=== PATIENT | female | born 1945 | race Caucasian/White ===

== ENCOUNTER → 2017-05-28 | Outpatient (CLI) | payer MEDICARE, OTHER ==
[~2017-05-28] MED LIST: ACET500T68 PO; ASPI-1471 PO; CALC1TAB32 PO; CHOL400C PO; FLU60SYR30 IM ONLY; GLUC-198 PO; IBUP-1687 PO; LATA2.5D7 OU; OMEG-36 PO
--- NOTE | 2017-05-28 15:48 | RADIOLOGY IMAGING REPORT ---
FACILITY: [facility] PATIENT NAME: Ely Simeon : 1945 MR: [id number] V: [id number] EXAM DATE: ORDERING PHYSICIAN: HARRY DONOVAN TECHNOLOGIST: Location: [facility] Patient: Ely Simeon : 1945 Visit/Account:[id number] Date of Sevice: 05/28/2017 DEXA Scan Clinical history: Postmenopausal. Comparison: None available. LUMBAR SPINE: The bone mineral density (BMD) measured from L1-L4 correlates with a Z-score 0.4 and a T-score of -1. 3 which is osteopenia as defined by the World Health Organization. The corresponding risk of fractur e in the lumbar spine is 2-3 times increased compared with a young adult reference population. HIP: Bone mineral density (BMD) measured in the Left total hip region correlates with a Z-score 1.6 and a T-score of zero which is Normal as defined by the World Health Organization. The corresponding risk of fracture in the hip is Not increased compared with a young adult reference population. T score l eft femoral neck -0.9 Bone mineral density (BMD) measured in the Femoral Neck region measures 0.917 g/cm2. Impression: 1. Lumbar spine: Osteopenia. 2. Left Hip: Normal. 3. Femoral Neck: Bone Mineral Density is 0.917 g/cm2 The next DEXA scan of this patient should include the following sites: L1-L4 and the left hip. FRAX? WHO Fracture Risk Assessment Tool link: <http://www.shef.ac.uk/FRAX/tool.jsp?locationValue=9> PLEASE NOTE: 1) The World Health Organization defines low BMD as follows: T-score Normal > -1 Osteopenia < -1 and > -2.5 Osteoporosis < -2.5 without fractures Established osteoporosis < -2.5 with fractures 2) In general, you may wish to consider: Diagnosis Treatment Follow-up DEXA Normal BMD Prevention 2-3 years Osteopenia Prevention/therapy 1-2 years Osteoporosis Therapy Yearly 3) Fracture risk estimated from the T-score is more accurate for vertebral fractures (often spontane ous) than for hip fractures. Report Dictated By: Yadira Amaya MD at 05/28/2017 3:37 PM Report E-Signed By: Yadira Amaya MD at 05/28/2017 3:44 PM LUDWINN:JOAQUÍN
--- NOTE | 2017-06-01 17:18 | RADIOLOGY IMAGING REPORT ---
FACILITY: [facility] PATIENT NAME: HUGO FERNÁNDEZ : [id number] MR: [id number] V: [id number] EXAM DATE: [id number] ORDERING PHYSICIAN: HARRY DONOVAN TECHNOLOGIST: Valarie Jesus PROCEDURE:BILATERAL DIGITAL SCREENING MAMMOGRAM WITH CAD ASSISTED INTERPRETATION AND 3D BREAST TOMOSYNTHESIS. COMPARISON:Prior mammograms dated 11/19/15, 08/29/12, 08/18/10 and 08/12/10. INDICATIONS:SCREENING FINDINGS: A small to moderate amount of fibroglandular tissue is seen throughout the breasts. The parenchymal pattern has remained stable when allowing for difference in mammographic technique and patient positioning. There is no evidence of malignant appearing mass, malignant appearing calcification or other secondary sign of malignancy in either breast. DIAGNOSTIC CATEGORY 1--NEGATIVE. RECOMMENDATIONS: ROUTINE MAMMOGRAM AND CLINICAL EVALUATION. IMPRESSION: Bi-RADS 1: No significant abnormality is seen. Images were reviewed with R2CAD and 3D breast tomosynthesis. Dictated by: Yadira Amaya M.D. on 05/28/2017 at 15:26 Transcribed by: SATYA on 05/28/2017 at 16:46 Approved by: Yadira Amaya M.D. on 06/01/2017 at 17:17 [facility]
== END ==
LOC: MAMO 02:56
PROVIDERS: ATTEND Family Medicine
DX: Z13.820 Encounter for screening for osteoporosis (principal); Z12.31 Encounter for screening mammogram for malignant neoplasm of breast; M85.88 Other specified disorders of bone density and structure, other site; Z78.0 Asymptomatic menopausal state
CPT/HCPCS: 77063; 77080; G0202; 77067

== ENCOUNTER → 2018-02-03 | Outpatient (CLI) | payer MEDICARE, OTHER ==
[~2018-02-03] MED LIST changes: +FEXO-72 PO
[2018-02-03 08:39] LABS: PLATELET COUNT, AUTOMATED 198 K/uL (150-450)
[2018-02-03 10:03] LABS: LDL CHOLESTEROL 98 mg/dl
== END ==
LOC: LAB 08:25
PROVIDERS: ATTEND Family Medicine
DX: I10 Essential (primary) hypertension (principal)
CPT/HCPCS: 36415; 82040; 82247; 82310; 82374; 82435; 82465; 82565; 82947; 83718; 84075; 84132; 84155; 84295; 84450; 84460; 84478; 84520; 85025